=== PATIENT | female | born 1965 | race African-American/Black ===

== ENCOUNTER 2016-09-06 15:37 | Emergency (ER) | payer OTHER ==
--- NOTE | ~2016-09-06 | CR126 ---
[facility]. [facility] A Service of [facility] & [facility] RADIOLOGY TEXT RESULTS PATIENT: EZ LUCAS LOCATION: SED : 61 UNIT #: [id number] AGE: [address]: ROSCOE KOEHLER SEX: F ORDER DR: [id number] [place] [id number] E MR#: [id number] Acc #: [id number] NAME: ZE LUCAS : 1965 SEX: F STUDY DATE/TIME: 09/06/2016 16:13 UNIT: SED ROOM: STUDY DESCRIPTION: CR Foot Complete Min 3 View Lt Attending Physician: Roscoe Koehler Ordering Physician: Roscoe Koehler Primary Care Physician: Rosana Boyd Aprn MEDICAL IMAGING REPORT This report is preliminary unless electronic signature is present. EXAM Left foot series 09/06/2016 HISTORY 50-year-old female in the ED complaining of foot and ankle pain and soft tissue swelling after twisting injury today. TECHNIQUE Three-view left foot series. FINDINGS The examination is limited by suboptimal patient positioning. No fracture, dislocation or other acute osseous abnormality is demonstrated. Soft tissue swelling is noted throughout the foot. IMPRESSION Soft tissue swelling. Left foot series is otherwise negative. Dictated by... Marko Perry M.D. THIS IS AN ELECTRONICALLY VERIFIED REPORT Marko Perry M.D. at 09/07/2016 12:51 PM JESSIEW/nargis TD: 09/07/2016 01:24 JOB #: [id number] MEDICAL IMAGING REPORT Page 1 of 1
--- NOTE | ~2016-09-06 | CR20 ---
[facility] A Service of [facility] & [facility] RADIOLOGY TEXT RESULTS PATIENT: EZ LUCAS LOCATION: SED : 61 UNIT #: [id number] AGE: [address]: ROSCOE KOEHLER SEX: F ORDER DR: [id number] [place] [id number] E MR#: [id number] Acc #: [id number] NAME: EZ LUCAS : 1965 SEX: F STUDY DATE/TIME: 09/06/2016 16:13 UNIT: SED ROOM: STUDY DESCRIPTION: CR Ankle Min 3 Views Lt Attending Physician: Roscoe Koehler Ordering Physician: Roscoe Koehler Primary Care Physician: Rosana Boyd Aprn MEDICAL IMAGING REPORT This report is preliminary unless electronic signature is present. EXAM Left ankle series 09/06/2016 HISTORY Trauma today. Twisted. Diffuse ankle foot pain and lateral side swelling. FINDINGS AP lateral and oblique radiographs of the left ankle are presented. No traumatic fracture or malalignment. Small plantar calcaneal spur. Ankle mortise joint intact. No soft tissue defect. Soft tissue swelling lateral malleolar region. Correlate with exam and mechanism of injury. Dictated by... Sergio Acosta M.D. THIS IS AN ELECTRONICALLY VERIFIED REPORT Sergio Acosta M.D. at 09/07/2016 10:48 PM LEXA/nargis TD: 09/07/2016 03:35 JOB #: [id number] MEDICAL IMAGING REPORT Page 1 of 1
[~2016-09-06 15:37] MED LIST: ALBUTEROL17 GM INH; ATHENOL325 MG PO; BACLOFEN10 MG PO; BACTRIM DS TABL1 TA1 PO; BACTRIM DS TABL1 TA2 PO; BENADRYL25 M1 PO; BENICAR20 MG PO; BENZONATATE PO; CELEBREX PO; CLARITIN5 MG PO; CLEOCIN150 MG PO; CLINDAMYCIN HC300 MG PO; CLONIDINE PO; COUMADIN PO; DARVOCET-N 1001 TAB PO; DEPAKOTE PO; DESYREL150 M1 PO; DILANTIN; DILANTIN PO; DIVALPROEX SOD500 MG PO; DOXEPIN HCL50 MG PO; DOXEPIN PO; ERYC250 MG PO; FAMOTIDINE PO; FLEXERIL10 M1 PO; FLEXERIL10 MG PO; GABAPENTIN300 MG PO; GABAPENTIN400 M2 PO; HYDROCHLOROTH12.5 MG PO; HYDROCODON-ACE1 EAC9 PO; HYDROCODONE/APA1 T16 PO; IBUPROFEN PO; IBUPROFEN800 MG PO; IMITREX; IMITREX20 MG/SPRA NS; KLOR-CON PO; LASIX PO; LASIX20 MG PO; LISINOPRIL20 MG PO; LORTAB 5/500 TA1 TA1 PO; LORTAB 5/500 TA1 TA2 PO; LORTAB 7.5-5001 TAB PO; MACROBID100 MG DOB; MEDROL4 MG/DOSE- PO; METOPROLOL SUCC25 MG PO; METOPROLOL SUCC50 MG PO; METOPROLOL TAR25 MG PO; MIRALAX255 GM PO; MORGIDOX100 MG PO; MUCUS RELIEF600 MG PO; MULTI-DAY VITAM1 TAB PO; MULTI-VITAMIN1 TAB PO; MULTIVITAMINS1 EAC2 PO; NEURONTIN PO; NEURONTIN100 MG PO; NEURONTIN300 MG PO; NORCO 5/325 TAB1 TAB PO; NORVASC PO; OMEPRAZOLE40 MG PO; ORUDIS75 M1 PO; PHENERGAN PR; PHENERGAN25 M1 DOB; PHENERGAN25 M1 PO; PHENERGAN25 MG PO; PREDNISONE PO; PRILOSEC PO; PRINIVIL20 M1 PO; PROPRANOLOL; PROZAC10 M1; PROZAC10 MG PO; REGLAN PO; ROBAXIN500 MG PO; SERTRALINE HCL50 MG PO; SYMBICORT INH; SYMBICORT80; TALWIN NX TABLE1 TAB PO; TESSALON200 MG PO; TOPROL XL; TOPROL XL PO; TRAZODONE HCL150 MG PO; TYLENOL #3 PO; ULTRAM PO; VENTOLIN5 MG/ML; VICODIN 5/500 T1 TAB PO; VIMPAT100 MG PO; VIMPAT150 MG PO; VOLTAREN50 MG PO; VOLTAREN75 MG PO; ZESTRIL5 MG PO; ZITHROMAX PO; ZOLOFT50 MG PO; ZONEGRAN100 M1 DOB; ZYRTEC
== END 2016-09-06 18:20 | disposition home or self-care (01) ==
LOC: SED 15:37
DX: S93.402A Sprain of unspecified ligament of left ankle, initial encounter (principal); S93.602A Unspecified sprain of left foot, initial encounter; F17.210 Nicotine dependence, cigarettes, uncomplicated; Z88.0 Allergy status to penicillin; Z88.8 Allergy status to other drugs, medicaments and biological substances; W18.30XA Fall on same level, unspecified, initial encounter; Y92.9 Unspecified place or not applicable
CPT/HCPCS: 29405; 73610; 73630; 99283

== ENCOUNTER 2016-10-19 10:00 | Emergency (ER) | payer OTHER ==
[~2016-10-19] VITALS: Ht 162.6 cm; Wt 117.9 kg
== END 2016-10-19 11:14 | disposition home or self-care (01) ==
LOC: SED 10:00
DX: B37.0 Candidal stomatitis (principal); J45.909 Unspecified asthma, uncomplicated; G47.33 Obstructive sleep apnea (adult) (pediatric); Z86.718 Personal history of other venous thrombosis and embolism; F17.210 Nicotine dependence, cigarettes, uncomplicated; Z88.8 Allergy status to other drugs, medicaments and biological substances; Z91.041 Radiographic dye allergy status; Z88.0 Allergy status to penicillin; Z88.5 Allergy status to narcotic agent; Z88.6 Allergy status to analgesic agent
CPT/HCPCS: 99283